=== PATIENT | female | born 1960 | race Caucasian/White ===

== ENCOUNTER 2016-03-24 11:00 | Day surgery (SDC) | payer OTHER ==
[2016-03-23 09:04] VITALS: BMI 27.3
[~2016-03-24 11:00] MED LIST: LACTATED RINGERS 1,000 ML IV SCH; LIDOCAINE 1% 20 ML VIAL (10MG/ML) FOR IV START INTRADERMA PRN
[2016-03-24 11:18] VITALS: RESP 18; TEMP 98
[2016-03-24] MEDS ORDERED: LACTATED RINGERS 1,000 ML IV ONE (11:18)
[2016-03-24] MEDS ORDERED: LIDOCAINE 1% 20 ML VIAL (10MG/ML) FOR IV START INTRADERMA ONE (11:19)
[2016-03-24] MEDS ORDERED: PROPOFOL 10 MG/ML 20 ML VIAL IV ONE (11:25)
[2016-03-24] MEDS ORDERED: LIDOCAINE 1% INJ 10MG/ML (20 ML MDV) ONE (11:25)
--- NOTE | 2016-03-24 11:46 | P.PCN ---
Date of Procedure: 03/24/16 Procedure(s) Performed: BRIEF HISTORY: Patient is a 55-year-old, pleasant, white female, scheduled for an upper endoscopy as a part of evaluation of long-standing history of gastroesophageal reflux symptoms of several years duration. She recently started taking Zantac 150 mg twice daily for the last 2-3 months and since she has become more symptomatic. Her medications were switched to omeprazole 20 mg twice daily about 2 weeks ago and feeling much better. PROCEDURE PERFORMED: Esophagogastroduodenoscopy with biopsy. PREOPERATIVE DIAGNOSIS: GERD. IV sedation per anesthesia. PROCEDURE: After informed consent was obtained, the patient was brought into the endoscopy unit. IV conscious sedation was administered by Anesthesia under continuous monitoring. Initially the Olympus GIF-140 video endoscope was inserted into the mouth. Esophagus intubated without any difficulty. It was gradually advanced into the stomach and duodenum and carefully examined. The bulb and the second part of the duodenum appeared normal. The scope at this time was withdrawn to the stomach, adequately insufflated with air, and upon careful examination, mucosa of the antrum had mild ascites and biopsies were done from this area. The body, cardia and the fundus appeared normal. The scope was then withdrawn into the esophagus. The GE junction was located at 35 cm from the incisors. There was a short segment of Ortiz's esophagus extending 2 mm proximal to the GE junction and circumferential erythema of the GE junction consistent with LA grade a reflux esophagitis. The rest of the esophagus appeared normal. There were no erosions or ulcerations seen and the patient tolerated the procedure well. IMPRESSION: 1. Mild antral gastritis. 2. LA grade a reflux esophagitis and short segment Ortiz's esophagus. RECOMMENDATIONS: The findings of this examination were discussed with the patient as well as her family. She was advised to follow with the biopsy results. She will continue with Prilosec 20 mg twice daily and follow antireflux measures.
[2016-03-24 12:02] VITALS: BP 121/76; PULSE 69
== END 2016-03-24 12:33 | disposition home or self-care (01) ==
LOC: ORWHC2ENDO 11:00
PROVIDERS: ATTEND Internal Medicine Gastroenterology
DX: K21.0 Gastro-esophageal reflux disease with esophagitis (principal); K29.50 Unspecified chronic gastritis without bleeding; K22.70 Barrett's esophagus without dysplasia; M54.9 Dorsalgia, unspecified; M79.7 Fibromyalgia; G89.29 Other chronic pain; R18.8 Other ascites; Z87.891 Personal history of nicotine dependence; Z79.891 Long term (current) use of opiate analgesic; Z79.899 Other long term (current) drug therapy; Z88.5 Allergy status to narcotic agent
CPT/HCPCS: 88305; 88342; 43239; J2001; J2704

== ENCOUNTER → 2016-09-29 | Outpatient (CLI) | payer OTHER ==
--- NOTE | 2016-09-29 09:35 | CT ---
EXAMINATION TYPE: CT lumbar spine wo con DATE OF EXAM: 09/29/2016 COMPARISON: NONE HISTORY: Pain down Rt leg CT DLP: 862 mGycm CONTRAST: Unenhanced CT of the lumbar spine is performed. Unenhanced CT of the lumbar spine was performed. Bon e and soft tissue window settings are submitted as well as coronal and sagittal reconstructions. L1-L2: Moderate degenerative disc space narrowing. The anterior vacuum changes. Mild posterior disc b ulge without herniation protrusion or central stenosis. Ventral spondylosis identified. Mild facet ching int arthropathy. L2-L3: Moderate degenerative disc space narrowing. Moderate circumferential disc bulge greatest poste riorly with mild effacement of the ventral thecal sac. No evidence for central stenosis or disc herni ation. Mild left foraminal encroachment. L3-L4: Decompressive laminectomy. Intervertebral vertebral body spacer. Pedicular screws are in place . Extensive streak artifact limits evaluation. No obvious recurrent disease is noted at this time. L4-L5: Decompressive laminectomy. Intervertebral vertebral body spacer. Pedicular screws are in place . Extensive streak artifact limits evaluation. Intervertebral body spacer appears to extend beyond th e confines of the posterior margin of the L4-5 level and appears to result in left lateral recess rigoberto nosis. Correlate clinically. L5-S1: Decompressive laminectomy. Intervertebral vertebral body spacer. Pedicular screws are in place . Extensive streak artifact limits evaluation. Intervertebral body spacer appears to extend beyond th e confines of the posterior margin of the L4-5 level and appears to result in left lateral recess rigoberto nosis. Correlate clinically. No paraspinal masses are identified. Lumbar segments are free if fracture. IMPRESSION: 1. Degenerative disc disease with disc bulging at L1-2 and L2-3 also discussed. 2. Postoperative changes of decompressive laminectomy with pedicular screws. As noted above the inter vertebral body spacers appear to extend beyond the confines the posterior margin of the disc spaces a t L4-5 and L5-S1 resulting in left lateral recess stenosis. Correlate clinically. Postoperative align ment is anatomic.
== END | disposition home or self-care (01) ==
LOC: RADCTMAIN 08:58
PROVIDERS: ATTEND Anesthesiology
DX: M48.07 Spinal stenosis, lumbosacral region (principal); M51.26 Other intervertebral disc displacement, lumbar region; M51.36 Other intervertebral disc degeneration, lumbar region; Z98.890 Other specified postprocedural states
CPT/HCPCS: 72131

== ENCOUNTER → 2018-05-29 | Outpatient (CLI) | payer OTHER | END | disposition home or self-care (01) | LOC: RADUSWWP 09:26 | PROVIDERS: ATTEND Family Medicine | DX: Z53.9 Procedure and treatment not carried out, unspecified reason (principal) ==

== ENCOUNTER 2018-12-05 18:56 | Emergency (ER) | payer OTHER ==
[2018-12-05] MEDS ORDERED: MORPHINE SULFATE 4 MG/ML SYRINGE IM STA (19:37)
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
--- NOTE | 2018-12-05 22:14 | XR ---
EXAMINATION TYPE: XR clavicle LT DATE OF EXAM: 12/05/2018 COMPARISON: NONE HISTORY: Pain TECHNIQUE: 2 views FINDINGS: I see no fracture nor dislocation. Joint spaces are fairly normal. IMPRESSION: Negative left clavicle exam.
--- NOTE | 2018-12-05 22:15 | XR ---
EXAMINATION TYPE: XR thoracic spine 2V DATE OF EXAM: 12/05/2018 COMPARISON: 09/28/2013 HISTORY: Pain TECHNIQUE: 3 views FINDINGS: The vertebra have normal alignment. Posterior elements are intact. There is no paraspinal m ass. There is spinal stimulator in the mid thoracic spine. There is no compression fracture. IMPRESSION: Negative thoracic spine exam. No fracture.
--- NOTE | 2018-12-05 22:16 | XR ---
EXAMINATION TYPE: XR chest 2V DATE OF EXAM: 12/05/2018 COMPARISON: 08/20/2013 HISTORY: Chest pain TECHNIQUE: Frontal and lateral views of the chest are obtained. FINDINGS: Heart and mediastinum are normal. Lungs are clear of infiltrate. There is no pleural effus ion or pneumothorax. There is neural stimulator in the mid thoracic spine. IMPRESSION: No cardiopulmonary disease. No adverse change compared to old exam.
[2018-12-05 22:38] VITALS: BP 128/65; PULSE 82; RESP 14; TEMP 98.4
== END 2018-12-05 22:51 | disposition home or self-care (01) ==
LOC: EC 18:56
DX: S16.1XXA Strain of muscle, fascia and tendon at neck level, initial encounter (principal); S29.012A Strain of muscle and tendon of back wall of thorax, initial encounter; R51 Headache; E78.5 Hyperlipidemia, unspecified; K21.9 Gastro-esophageal reflux disease without esophagitis; Z79.1 Long term (current) use of non-steroidal anti-inflammatories (NSAID); Z79.899 Other long term (current) drug therapy; Z88.5 Allergy status to narcotic agent; Z88.6 Allergy status to analgesic agent; Z87.891 Personal history of nicotine dependence; V43.62XA Car passenger injured in collision with other type car in traffic accident, initial encounter; Y92.410 Unspecified street and highway as the place of occurrence of the external cause
CPT/HCPCS: 72070; 73000; 71046; 72125; 70450; 99284; 96372; J2270

== ENCOUNTER → 2019-02-27 | Outpatient (CLI) | payer OTHER ==
--- NOTE | 2019-02-27 08:33 | US ---
EXAMINATION TYPE: US abdomen complete DATE OF EXAM: 02/27/2019 COMPARISON: CT lumbar spine 2017 CLINICAL HISTORY: R10.84 Abd pain. RLQ pain radiating to back; prior renal stones and constipation pe r patient; gallbladder removed EXAM MEASUREMENTS: Liver Length: 12.4 cm Gallbladder Wall: surgically removed CBD: 0.7 cm Spleen: 8.4 cm Right Kidney: 8.6 x4.7 x 3.3 cm Left Kidney: 8.9 x 4.7 x 4.2 cm Patient stated took laxative type medication prior to US today. US is limited by overlying bowel gas. Pancreas: Obscured by bowel gas Liver: heterogeneous appearance Gallbladder: surgically removed Evidence for sonographic Finch's sign: no CBD: size is wnl post laparoscopy cholecystectomy Spleen: wnl Right Kidney: No hydronephrosis or masses seen Left Kidney: No hydronephrosis or masses seen Upper IVC: wnl Abd Aorta: upper and mid gassed out Suboptimal study due to overlying bowel gas. Postcholecystectomy changes. Heterogeneous appearance of the liver favors diffuse fatty infiltration. Scanning of right lower quadrant shows no worrisome flu id collection or concerning mass. Normal bowel loops noted during real-time scanning. IMPRESSION: Suboptimal study without acute findings seen to account for patient's symptoms.
== END | disposition home or self-care (01) ==
LOC: RADUSWWP 07:01
PROVIDERS: ATTEND Family Medicine
DX: R10.84 Generalized abdominal pain (principal)
CPT/HCPCS: 76700

== ENCOUNTER → 2019-10-11 | Outpatient (CLI) | payer OTHER ==
--- NOTE | 2019-10-11 17:37 | CT ---
EXAMINATION TYPE: CT angio abdomen DATE OF EXAM: 10/11/2019 11:58 AM COMPARISON: Ultrasound abdomen 02/27/2019 HISTORY: Splenic artery aneurysm CT DLP: 436.60 mGycm Automated exposure control for dose reduction was used. TECHNIQUE: CT angiography of the abdomen performed without and with IV Contrast, patient injected with 100 ml mL of Isovue 300. Coronal and sagittal reformatted images obtained. 3D reconstructed images are created on an independent workstation and reviewed.. FINDINGS: LUNG BASES: Normal. LIVER: Normal. BILIARY SYSTEM: No intrahepatic biliary ductal dilatation. Extrahepatic biliary ductal prominence up to 9 mm likely due to status post cholecystectomy. PANCREAS: Normal. SPLEEN: Normal. ADRENALS: Normal. KIDNEYS: No hydronephrosis. Mild areas of cortical scarring on the right. BOWEL: No evidence of bowel obstruction. Marked colonic fecal debris. PERITONEUM: No free air is visualized. No free fluid. ADENOPATHY: No lymphadenopathy. PELVIS: Incompletely visualized urinary bladder demonstrates bowel or stones measuring 5 and 6 mm. VASCULATURE: Splenic artery aneurysm measures 13 mm. The abdominal aorta, celiac artery, superior me senteric artery, bilateral single renal arteries, and inferior mesenteric arteries are patent with no evidence of aneurysm or significant stenosis. The bilateral common, external, and internal iliac art eries are patent with no significant stenosis. MUSCULOSKELETAL: Left-sided intrathecal pain pump device with incomplete visualization of distal omkar ds. Postsurgical changes of the lumbar spine. IMPRESSION: 1. 13 mm splenic artery aneurysm. 2. Marked colonic fecal debris. Correlate clinically for constipation. 3. No acute abdominal process.
== END | disposition home or self-care (01) ==
LOC: RADCTMAIN 10:16
PROVIDERS: ATTEND Surgery
DX: I72.8 Aneurysm of other specified arteries (principal); K56.41 Fecal impaction; Z91.048 Other nonmedicinal substance allergy status
CPT/HCPCS: 74175; Q9967

== ENCOUNTER → 2020-04-09 | Outpatient (CLI) | payer OTHER ==
--- NOTE | 2020-04-09 14:06 | US ---
EXAMINATION TYPE: US pelvic complete DATE OF EXAM: 04/09/2020 COMPARISON: NONE CLINICAL HISTORY: R10.2 Pelvic pain N81.10. Pain TECHNIQUE: Transabdominal (TA EXAM MEASUREMENTS: Uterus: Surgically absent cm Endometrial Stripe: Surgically absent cm Right Ovary: Surgically absent cm Left Ovary: Surgically absent cm 1. Uterus: Surgically absent 2. Endometrium: Surgically absent 3. Right Ovary: Surgically absent 4. Left Ovary: Surgically absent 5. Bilateral Adnexa: wnl 6. Posterior cul-de-sac: wnl IMPRESSION: Normal post hysterectomy pelvic ultrasound
--- NOTE | 2020-04-09 14:10 | US ---
EXAMINATION TYPE: US abdomen complete DATE OF EXAM: 04/09/2020 COMPARISON: NONE CLINICAL HISTORY: R10.2 Pelvic pain N81.10. Pain Limited due to body habitus. EXAM MEASUREMENTS: Liver Length: 15.1 cm Gallbladder Wall: Surgically absent CBD: .5 cm Spleen: 11.3 cm Right Kidney: 8.1 x 3.7 x 3.9 cm Left Kidney: 10.2 x 4.9 x 4.4 cm Pancreas: Obscured by bowel gas Liver: Limited Gallbladder: Surgically absent Evidence for sonographic Finch's sign: No CBD: wnl Spleen: wnl Right Kidney: No hydronephrosis or masses seen Left Kidney: No hydronephrosis or masses seen Upper IVC: wnl Abd Aorta: wnl IMPRESSION: 1. Abdomen ultrasound as visualized is unremarkable
== END | disposition home or self-care (01) ==
LOC: RADUSWWP 07:50
PROVIDERS: ATTEND Family Medicine
DX: Z90.710 Acquired absence of both cervix and uterus (principal); R10.2 Pelvic and perineal pain; N81.10 Cystocele, unspecified
CPT/HCPCS: 76700; 76856

== ENCOUNTER → 2020-11-19 | Outpatient (CLI) | payer OTHER ==
--- NOTE | 2020-11-20 08:38 | CT ---
EXAMINATION TYPE: CT angio abdomen pelvis DATE OF EXAM: 11/19/2020 HISTORY: f/u aneurysm CT DLP: 429.3mGycm Automated Exposure Control for Dose Reduction was Utilized. CONTRAST: CTA scan of the abdomen and pelvis is performed without oral but with IV Contrast, patient injected w ith 100 mL of Isovue 370. Aneurysm protocol with 3-D reconstructed images created on an independent w orkstation and reviewed COMPARISON: Prior CT abdomen October 11, 2019 FINDINGS: VASCULAR: Satisfactory enhancement of the aorta and branch vessels. No significant plaque or stenosis . Bilateral patent single renal arteries. Patent DIAMANTE. Iliac branch vessels show no significant plaque or stenosis. Femoral vessels show no significant plaque or stenosis. Stable rim calcified 1.3 cm spl enic artery aneurysm in the hilum axial image 23. No significant change from prior. LUNG BASES: No significant abnormality is appreciated. LIVER/GB: Cholecystectomy clips are redemonstrated. Stable extrahepatic biliary ducts measuring upper limits of normal. PANCREAS: No significant abnormality is seen. SPLEEN: No significant abnormality is seen. ADRENALS: No significant abnormality is seen. KIDNEYS: No significant abnormality is seen. BOWEL: Small to moderate-sized hiatal hernia is more prominent from prior. There is suspected dilated debris-filled esophagus. Difficult to distinctly visualize gastroesophageal junction. Clinical corre lation and follow-up advised. Persistent low lying cecum into the pelvis. Fecal prominent cecal redemonstrated. Normal-appearing ap pendix in the pelvis noted. No suspicious small or large bowel dilatation. Mild to moderate diffuse c olonic fecal prominence remains present. UTERUS/ADNEXA: Uterus surgically absent. LYMPH NODES: No greater than 1cm abdominal or pelvic lymph nodes are appreciated. OSSEOUS STRUCTURES: Interval removal of the left anterior spinal pain pump with scar tissue at this l evel axial image 44. New posterior right sided intrathecal pain pump. Artificial disc material L3-L4 through L5-S1 levels redemonstrated. Metallic disc material L2-L3 leve l again seen. Position stable slightly more posterior in location than desired. Moderate to severe di sc space narrowing with moderate to severe anterior and right lateral spurring L1-L2 level. Large hem angioma in the L1 vertebra redemonstrated. Osseous structures are demineralized with stable levoconve x scoliosis centered at L2 level. Moderate axial joint space loss in both hips. OTHER: No significant additional abnormality is seen. IMPRESSION: Stable 13 mm splenic hilar arterial rim calcified aneurysm.
== END | disposition home or self-care (01) ==
LOC: RADCTMAIN 16:28
PROVIDERS: ATTEND Surgery
DX: I71.4 Abdominal aortic aneurysm, without rupture (principal)
CPT/HCPCS: 82565; 84520; 36415; 74174; Q9967

== ENCOUNTER → 2023-01-10 | Outpatient (CLI) | payer OTHER ==
--- NOTE | 2023-01-10 09:40 | XR ---
EXAMINATION TYPE: XR shoulder complete LT DATE OF EXAM: 01/10/2023 COMPARISON: NONE HISTORY: Pain TECHNIQUE: Three views are submitted. FINDINGS: The osseous structures are intact. There is no acute fracture or dislocation. The AC joint is maint ained. Diffuse osteopenia stimulator leads seen overlying the thoracic spine. Mild AC joint arthropa thy. IMPRESSION: 1. Diffuse osteopenia with mild AC joint arthropathy.
== END | disposition home or self-care (01) ==
LOC: RADXRMAIN 09:14
PROVIDERS: ATTEND Anesthesiology
DX: M19.012 Primary osteoarthritis, left shoulder (principal); M85.812 Other specified disorders of bone density and structure, left shoulder

== ENCOUNTER → 2024-08-27 | Outpatient (CLI) | payer OTHER ==
--- NOTE | 2024-08-28 08:55 | CT ---
EXAMINATION TYPE: CT angio head DATE OF EXAM: 08/27/2024 4:25 PM COMPARISON: None. CLINICAL INDICATION: Female, 63 years old with history of I67.1 CEREBRAL ANEURYSM, NONRUPTURED; PHH, sharp pains in lt side of head TECHNIQUE: CT angio head Axially acquired helical CT angiogram was obtained. Axial images are supplem ented with 3D reconstructions which were post-processed at an independent workstation. Contrast used:65 mL of Isovue 370 with IV Contrast, none CT DLP: 137.3 mGycm, Automated exposure control for dose reduction was used. FINDINGS: The bilateral vertebral and basilar arteries as well as the remainder of the posterior circulation is patent. The dural venous sinuses are patent. The bilateral internal carotid arteries as well as the remainder of the anterior circulation is paten t. Anatomic variation with hypoplastic A1 segment right anterior cerebral artery azygos A2 segment. No aneurysmal change is seen. IMPRESSION: 1. No large vessel intracranial arterial occlusion, significant stenosis, or aneurysmal change is see n. 2. Some anatomic variation with hypoplastic A1 segment right PAOLA and azygos configuration to the A2 s egment. [facility], , 08/28/2024 8:52 AM
== END | disposition home or self-care (01) ==
LOC: RADCTMAIN 15:28
PROVIDERS: ATTEND Family Medicine
DX: I67.1 Cerebral aneurysm, nonruptured (principal)
CPT/HCPCS: 70496; Q9967